=== PATIENT | male | born 1975 | race Caucasian/White ===

== ENCOUNTER 2017-09-03 11:39 | Emergency (ER) | payer BC, OTHER ==
--- OUTSIDE RECORDS SUMMARY | 2017-09-03 11:47 | XMS REPORT ---
:1975 External Reference #:[id number] Author Organization [employer] Address [address] [place] [address] [place] [address] Phone [phone] Care Team Providers Name Role Phone Shemar Lackey MD Primary Care Physician Unavailable Payers Type Date Identification Numbers Payment Provider Subscriber Commercial Expires: Policy Number: [id number] [facility] Phil Carrasco 2017 PayID: [id number] [address] [place] [address] Medigap Part B Effective: Policy Number: [employer] Phil Carrasco 2017 [id number] PayID: [id number] [address] [place] [address] Problems Date Description Provider Status Onset: 06/17/2017 Altered mental status Bernard Pedroza M.D. Active Onset: 06/17/2017 Obstructive sleep apnea syndrome Bernard Pedroza M.D. Active Onset: 05/02/2017 Hypersomnia Bernard Pedroza M.D. Active Onset: 05/02/2017 Seizure Bernard Pedroza M.D. Active Onset: 05/02/2017 Chronic fatigue syndrome Bernard Pedroza M.D. 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 ETOH Use Rarely consumes alcohol Smoking Patient has never smoked Exercise Type/Frequency Exercises regularly Allergies, Adverse Reactions, Alerts Date Description Reaction Status Severity Comments 05/02/2017 Codeine GI reaction active 06/09/2013 NKDA inactive Medications Medication Date Status Form Strength Qnty SIG Indications Ordering Provider Topamax 08/15 Active Tablets 25mg 60tab 1 pill by R41.82 angelia s mouth Josee Pedroza twice a day Lexapro 08/15 Active Tablets 10mg 30tab Take one Ez angelia s once a Josee Pedroza day Cpap 06/18 Active Device 1unit for use G47.33 angelia s while Josee Pedroza sleeping Cpap Mask And 06/18 Active Device cpap G47.33 angelia supplies Josee Pedroza - headgear, cushion, tubing, filters, for sleep apnea Fluticasone Active Suspension 50mcg/Act 2 sprays Unknown Propionate /0000 each nostril as needed Ativan 00 Active Tablets 1mg 2 x daily Unknown /0000 as needed for panic attacks.. No Active 12/17 Hx Unknown Medications /2013 - 04/30 Hydrocodone/Acet 07/03 Hx Tablets 5-325mg 40tab 1-2 po malachi Hunt /2012 s qid gato Tripp - 12/12 Pseudoephedrine Hx Tablets 15mg mg 1 tabs by Unknown HCL /0000 mouth - every 12 / hours needed for sinus congestio n Vital Signs Date Vital Result Comment 08/15/2017 Height 75 inches 6'3" Weight 244.00 lb Heart Rate 88 /min BP Systolic Sitting 112 mmHg BP Diastolic Sitting 84 mmHg Respiratory Rate 16 /min BMI (Body Mass Index) 30.5 kg/m2 06/17/2017 Height 75 inches 6'3" Weight 240.00 lb Heart Rate 78 /min BP Systolic Sitting 128 mmHg BP Diastolic Sitting 78 mmHg Respiratory Rate 16 /min BMI (Body Mass Index) 30.0 kg/m2 05/02/2017 Height 75 inches 6'3" Weight 240.00 lb Heart Rate 76 /min BP Systolic 120 mmHg BP Diastolic 76 mmHg Respiratory Rate 16 /min BMI (Body Mass Index) 30.0 kg/m2 04/09/2017 Height 75 inches 6'3" Weight 240.00 lb Heart Rate 67 /min BP Systolic 122 mmHg BP Diastolic 84 mmHg Body Temperature 97.0 F BMI (Body Mass Index) 30.0 kg/m2 02/23/2014 Height 75 inches 6'3" Weight 225.00 lb Pain Level 0 BMI (Body Mass Index) 28.1 kg/m2 01/19/2014 Height 75 inches 6'3" Weight 225.00 lb Heart Rate 66 /min BP Systolic 132 mmHg BP Diastolic 86 mmHg Pain Level 0 BMI (Body Mass Index) 28.1 kg/m2 12/17/2013 Height 74 inches 6'2" Weight 220.00 lb Heart Rate 65 /min BP Systolic 128 mmHg BP Diastolic 80 mmHg BMI (Body Mass Index) 28.2 kg/m2 Results Description No Information Procedures Date CPT Code Description Status 05/24/2017 70080 Sleep Study Unattended,HRT Rate,Oxygen Sat,Resp Completed Effort/Airflow 05/03/2017 75344 EEG Recording Awake & Drowsy Completed 07/04/2012 73281 Arthroscopy,Knee,Meniscus Repair Medial Or Lateral Completed 07/04/2012 68216 Arthroscopy,Knee,Meniscus Repair Medial Or Lateral Completed Encounters Type Date Location Provider CPT E/M Dx Office Visit 08/15/2017 [facility] Pedroza [id number] G47.33 10:00a [facility] R41.82 R53.82 Office Visit 06/17/2017 2:15p [facility]za 27814 G47.33 [facility] R41.82 R53.82 Office Visit 05/02/2017 10:30a Juanpablo Pedroza, 28382 R53.82 [facility] R56.9 G47.10 Office Visit 04/09/2017 1:00p [facility] Harvinder Mooney, 89855 M25.561 [facility] Office Visit 02/23/2014 10:15a [facility] Rodrigo Brantley M.D. 69269 844.8 [facility] Office Visit 01/19/2014 11:45a [facility] Rodrigo Brantley M.D. 01595 844.8 [facility] Office Visit 12/17/2013 2:00p [facility] Niurka Lobo 33969 719.06 [facility] Office Visit 01/13/2013 10:30a [facility] Rodrigo Brantley M.D. 72104 844.8 [facility] Office Visit 12/26/2012 10:00a [facility] Rodrigo Brantley M.D. 57172 844.8 [facility] Office Visit 10/21/2012 11:45a [facility] Rodrigo Brantley M.D. 90967 844.8 [facility] Office Visit 07/03/2012 2:00p [facility] Rodrigo Brantley M.D. 17558 844.8 [facility] Plan of Care Future Appointment(s):09/12/2017 4:00 pm - Bernard Pedroza M.D. at [facility]08/15/2017 - Bernard Pedroza M.D.G47.33 Obstructive sleep apnea (adult) (pediatric)Follow up:Follow up in 4 ikanjM03.82 Altered mental status, unspecifiedNew Medication:Topamax 25 mgLexapro 10 mgR53.82 Chronic fatigue, unspecified
[2017-09-03 12:05] VITALS: BP 139/90
--- NOTE | 2017-09-03 12:10 | UC ---
Back Pain HPI - HPI Summary HPI Summary: 42 yo male presents with lower back pain for the last 2 days. 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 Has been painful since. No hx of back problems. Has taken tylenol and ibuprofen for pain with mild relief. Denies abdominal pain, n/v/d/c, saddle anesthesia, no loss of bowel/bladder function, numbness, or tingling. - History of Current Complaint Chief Complaint: UCBackPain Stated Complaint: BACK INJURY Time Seen by Provider: 09/03/17 12:09 Hx Obtained From: Patient Onset/Duration: Sudden Onset Severity Initially: Severe Severity Currently: Severe Pain Intensity: 7 Pain Scale Used: 0-10 Numeric - Allergies/Home Medications Allergies/Adverse Reactions: Allergies Allergy/AdvReac Type Severity Reaction Status Date / Time codeine AdvReac Abdominal Verified 09/03/17 11:58 Pain Home Medications: Home Medications Escitalopram Oxalate [Lexapro 10 mg] 10 mg PO DAILY 09/03/17 [History Confirmed 09/03/17] PMH/Surg Hx/FS Hx/Imm Hx Psychological History: Anxiety - Surgical History Surgical History: Yes Surgery Procedure, Year, and Place: umbilical HERNIA repair; meniscus right knee , wisdom teeth - Family History Known Family History: Positive: None - Social History Occupation: Employed Full-time Lives: With Family Alcohol Use: Occasionally Alcohol Amount: none for 2 mos after feeling he was drinking too much Substance Use Type: None Smoking Status (MU): Former Smoker Have You Smoked in the Last Year: No When Did the Patient Quit Smoking/Using Tobacco: 2011 Review of Systems Constitutional: Negative Skin: Negative Respiratory: Negative Cardiovascular: Negative Gastrointestinal: Negative Genitourinary: Negative Motor: Negative Neurovascular: Negative Musculoskeletal: Other: - LBP Neurological: Negative Psychological: Negative All Other Systems Reviewed And Are Negative: Yes Physical Exam - Summary Physical Exam Summary: GENERAL: NAD. WDWN. No pain distress. SKIN: No rashes, sores, lesions, or open wounds. NECK: Supple. FROM. Nontender. No lymphadenopathy. CHEST: CTAB. No r/r/w. No accessory muscle use. Breathing comfortably and in no distress. CV: RRR. Without m/r/g. Pulses intact. Brisk cap refill. MSK: TTP over lumbar paraspinal muscles. Pain with flexion and extension of spine. Positive SLR on RIGHT. Strength 5/5 B/L LEs including dorsiflexion and plantar flexion. FROM B/L LEs. No edema. NEURO: Alert. CN II-XII grossly intact. Sensations intact B/L LEs L3-S1. PSYCH: Age appropriate behavior. Triage Information Reviewed: Yes Vital Signs: Initial Vital Signs Temp 98.3 F 09/03/17 11:59 Pulse 64 09/03/17 11:59 Resp 16 09/03/17 11:59 BP 139/90 09/03/17 11:59 Pulse Ox 99 09/03/17 11:59 Vital Signs Reviewed: Yes Back Pain Course/Dx - Course Course Of Treatment: Lumbar XR: FINDINGS: The vertebra are in normal alignment. No fracture is seen. There is moderate to severe degenerative disc disease at the T12-L1 level and mild degenerative disc disease at the L1-L2 level. Suspect muscle strain/spasm. Toradol 30mg IM given in clinic. Rx for flexeril. F /u prn - Differential Dx/Diagnosis Provider Diagnoses: Low back spasm Discharge - Sign-Out/Discharge Documenting (check all that apply): Patient Departure - Discharge Plan Condition: Stable Disposition: HOME Prescriptions: Cyclobenzaprine TAB* [Flexeril 10 MG TAB*] 10 mg PO BID PRN #20 tab PRN Reason: Pain Patient Education Materials: Low Back Strain (ED), Lower Back Exercises (ED) Referrals: Shemar Lackey MD [Primary Care Provider] - Additional Instructions: If you develop a fever, shortness of breath, chest pain, new or worsening symptoms - please call your PCP or go to the ED. Your blood pressure was high at todays visit. Please see your primary provider within 4 weeks for recheck and re-evaluation. - Billing Disposition and Condition Condition: STABLE Disposition: Home
[2017-09-03] MEDS ORDERED: Ketorolac INJ* 30 MG/ML 1 ML VIAL IM ONE (12:15)
--- NOTE | 2017-09-03 12:41 | RAD ---
INDICATION: Low back pain. COMPARISON: There are no prior studies available for comparison. TECHNIQUE: 5 views of the lumbar spine were obtained including lateral, oblique, AP and a coned-down lateral view of the lumbar sacral junction. FINDINGS: The vertebra are in normal alignment. No fracture is seen. There is moderate to severe degenerative disc disease at the T12-L1 level and mild degenerative disc disease at the L1-L2 level. IMPRESSION: DEGENERATIVE DISC DISEASE AT THE DORSAL LUMBAR JUNCTION DESCRIBED.
== END 2017-09-03 13:03 | disposition home or self-care (01) ==
LOC: UCEAST 11:39
DX: M62.830 Muscle spasm of back (principal); F41.9 Anxiety disorder, unspecified; Z79.899 Other long term (current) drug therapy; Z87.891 Personal history of nicotine dependence; Z88.5 Allergy status to narcotic agent
CPT/HCPCS: 72110; 96372; 99212; G0463; J1885

== ENCOUNTER 2017-12-11 09:50 | Emergency (ER) | payer OTHER ==
[2017-12-11 10:02] VITALS: BP 127/81
--- NOTE | 2017-12-11 10:08 | UC ---
Respiratory Complaint HPI - HPI Summary HPI Summary: 42 y/o male presents to the urgent care c/o productive cough w/ chest congestion , chills that has worsen for the past 5 days. Pt reports symptoms started about 2 weeks ago w/ the common cold. He though it was resolving, but over the weekend chest became very congested w/ a lot +PND. Now producing a yellowish phlegm. He has felt SOB. Pt has been taking Claritin, Dayquill PO to alleviate symptoms. Pt deneis fever, chest pain, abdominal pain, N/V/D. - History of Current Complaint Chief Complaint: UCRespiratory Stated Complaint: COUGH CHEST CONGESTION Time Seen by Provider: 12/11/17 10:07 Hx Obtained From: Patient Onset/Duration: Gradual Onset, Lasting Weeks - 2 weeks, Still Present, Worse Since - 5 days Timing: Intermittent Episodes Severity Initially: Mild Severity Currently: Moderate Pain Intensity: 4 Pain Scale Used: 0-10 Numeric Character: Cough: Productive, Sputum Description: - yellowish Aggravating Factors: Recumbent Position Alleviating Factors: OTC Meds Associated Signs And Symptoms: Positive: URI, Nasal Congestion, Sinus Discomfort Related History: Seasonal Allergies - Risk Factors Pulmonary Embolism Risk Factors: Negative Cardiac Risk Factors: Negative Pseudomonas Risk Factors: Negative Tuberculosis Risk Factors: Negative - Allergies/Home Medications Allergies/Adverse Reactions: Allergies Allergy/AdvReac Type Severity Reaction Status Date / Time codeine AdvReac Abdominal Verified 12/11/17 10:02 Pain Home Medications: Home Medications Dm/Pseudoephed/Acetaminophen [Day-Time Cold-Flu Softgel] 1 tab PO ONCE PRN 12/11 [History Confirmed 12/11/17] PMH/Surg Hx/FS Hx/Imm Hx Previously Healthy: Yes - Pt denies PMHX - Surgical History Surgical History: Yes Surgery Procedure, Year, and Place: umbilical HERNIA repair; meniscus right knee , wisdom teeth - Family History Known Family History: Positive: None - Pt denies FMHX - Social History Occupation: Employed Full-time Lives: With Family Alcohol Use: None Alcohol Amount: none for 2 mos after feeling he was drinking too much Substance Use Type: None Substance Use Comment - Amount & Last Used: sometimes, had in some tea Smoking Status (MU): Former Smoker Have You Smoked in the Last Year: No When Did the Patient Quit Smoking/Using Tobacco: 2012 Review of Systems Constitutional: Chills, Fatigue Skin: Negative Eyes: Negative ENT: Nasal Discharge - yellowish, Sinus Congestion Respiratory: Shortness Of Breath - at times, Cough - productive w/ yellowihs phelgm Cardiovascular: Negative Gastrointestinal: Negative Genitourinary: Negative Motor: Negative Neurovascular: Negative Musculoskeletal: Negative, Calf Tenderness Neurological: Negative Psychological: Negative Is Patient Immunocompromised?: No All Other Systems Reviewed And Are Negative: Yes Physical Exam - Summary Physical Exam Summary: Vital Signs Reviewed: Yes General: well developed, well nourished male sitting in the examining table w/o any apparent distress Eyes: Positive: Conjunctiva Clear - PERRLA, EOMI, fundi grossly normal ENT: Positive: Normal ENT inspection, Hearing grossly normal, Pharynx normal, Nasal congestion - edematous and erythematous nasal mucosa, Nasal drainage - yellowish drainage, TMs normal. Negative: Tonsillar swelling, Tonsillar exudate Neck: Positive: Supple, Nontender, No Lymphadenopathy Respiratory: no orthopnea or dyspnea. Able to speak in full sentences, no retractions or accessory muscle use, no tripod position, stridor, or head bobbing. Positive breath sounds bilaterally. diffuse scattered wheezing and rhonchi on b/L lungs, no crackles or rales. Cardiovascular: Positive: RRR, No Murmur, Pulses Normal, Brisk Capillary Refill Abdomen Description: Positive: Nontender, No Organomegaly, Soft. Negative: CVA Tenderness (R), CVA Tenderness (L) Bowel Sounds: Positive: Present Musculoskeletal Exam: Normal Musculoskeletal: Positive: Strength Intact, ROM Intact, No Edema Neurological Exam: Normal Psychological Exam: Normal Skin Exam: Normal Triage Information Reviewed: Yes Vital Signs: Initial Vital Signs Temp 98.3 F 12/11/17 09:57 Pulse 72 12/11/17 09:57 Resp 18 12/11/17 09:57 BP 127/81 12/11/17 09:57 Pulse Ox 97 12/11/17 09:57 UC Diagnostic Evaluation - Laboratory O2 Sat by Pulse Oximetry: 97 Respiratory Course/Dx - Course Course Of Treatment: 42 y/o male presents to the urgent care c/o productive cough w/ chest congestion, chills that has worsen for the past 5 days. Pt reports symptoms started about 2 weeks ago w/ the common cold. He though it was resolving, but over the weekend chest became very congested w/ a lot +PND. Now producing a yellowish phlegm. He has felt SOB. Pt has been taking Claritin, Dayquill PO to alleviate symptoms. Pt deneis fever, chest pain, abdominal pain, N/V/D.Hx obtained. Pt w/ B/L lungs w/ scattered rhonchi on examiantion. O2Sat:97 %. Chest X-ray ordered: no acitve cardiolopulmonary disease observed as per radiologist. Pt with Acute bronchitis on examination. Pt Rx Doxyxycline PO and Albuterol inhaler to alleviate bronchospasm and Tessalon tabs PO as directed below. Pt advised to increase fluid intake and eat well. if not improvement or worsening of symptoms to return to the urgent care or f/u with PCP for further management. pt understood and agreed with plan of care. - Differential Dx/Diagnosis Differential Diagnosis/HQI/PQRI: Asthma, Bronchitis, Laryngitis, Lower Resp Infection, Sinusitis, Other - URI, pneumonia Provider Diagnoses: 1- Acute Bronchitis. 2-Cough Discharge - Sign-Out/Discharge Documenting (check all that apply): Patient Departure All imaging exams completed and their final reports reviewed: Yes - Discharge Plan Condition: Stable Disposition: HOME Prescriptions: Albuterol HFA INHALER* [Ventolin HFA Inhaler*] 1 - 2 puff INH Q6H PRN #1 mdi PRN Reason: Cough Benzonatate CAP* [Tessalon 100 MG CAP*] 100 mg PO TID PRN #21 cap PRN Reason: Cough DOXYcycline CAP(*) [DOXYcycline 100MG CAP(*)] 100 mg PO BID #20 cap Patient Education Materials: Acute Bronchitis (ED) Forms: *Work Release Referrals: Shemar Lackey MD [Primary Care Provider] - 3 Days - Billing Disposition and Condition Condition: STABLE Disposition: Home
--- NOTE | 2017-12-11 10:34 | RAD ---
Indication: Cough. 2 views of the chest including dual energy PA views demonstrate no mediastinal shift. Heart is of normal size and configuration. Lung tan are clear. No pleural fluid, pneumonia or pneumothorax is noted. IMPRESSION: No active cardiopulmonary disease is noted.
== END 2017-12-11 10:44 | disposition home or self-care (01) ==
LOC: UCEAST 09:50
DX: J20.9 Acute bronchitis, unspecified (principal); Z88.5 Allergy status to narcotic agent; Z87.891 Personal history of nicotine dependence
CPT/HCPCS: 71046; 99212; G0463

== ENCOUNTER 2018-06-09 12:19 | Emergency (ER) | payer OTHER ==
--- OUTSIDE RECORDS SUMMARY | 2018-06-09 12:28 | XMS REPORT | Continuity of Care Document ---
:1975 External Reference #:[id number] Author Name Katharine Duncan Care Team Providers Name Role Phone Shemar Lackey MD Primary Care Physician Unavailable Payers Date Identification Numbers Payment Provider Subscriber Expires: 2017 Policy Number: [id number] [facility] Phil J Danilo PayID: [id number] [address] [place] [address] Effective: 2017 Policy Number: [id number] [employer] Phil Lg Danilo PayID: [id number] [address] [place] [address] Advance Directives Description No Information Available Problems Date Description Provider Status Onset: 05/02/2017 Chronic fatigue syndrome Bernard Pedroza M.D. Active Onset: 05/02/2017 Seizure Bernard Pedroza M.D. Active Onset: 05/02/2017 Hypersomnia Bernard Pedroza M.D. Active Onset: 06/17/2017 Obstructive sleep apnea syndrome Bernard Pedroza M.D. Active Onset: 06/17/2017 Altered mental status Bernrad Pedroza M.D. Active Onset: 09/12/2017 Alcohol dependence Bernard Pedroza M.D. Active Onset: 09/12/2017 Anxiety state Bernard Pedroza M.D. 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 Hand Dominance Right-handed ETOH Use Rarely consumes alcohol Tobacco Use Start: Unknown Patient has never smoked Recreational Drug Use Denies Drug Use Smoking Status Reviewed: 05/26/18 Patient has never smoked Exercise Type/Frequency Exercises regularly Allergies, Adverse Reactions, Alerts Date Description Reaction Status Severity Comments 05/02/2017 Codeine GI reaction Active 06/09/2013 NKDA Inactive Medications Medication Date Status Form Strength Qnty SIG Indications Ordering Provider Cpap Mask And 05/26 Active Device 12uni cpap R41.82 ophvinita ts supplies Josee Pedroza - headgear, cushion, tubing, filters, for sleep apnea dx code g47.33 Citalopram 05/19 Active Tablets 10mg 30tab 1 by Bernard Wade s mouth Josee Pedroza every day No Active 04/15 Hx Unknown Medications - 05/19 Citalopram 02/06 Hx Tablets 10mg 30tab take 1 F41.9 Bernard Hydrobromide s pill in Josee Pedroza - in the 04/14 Chlordiazepoxide 09/12 Hx Capsules 25mg 20cap Take 1 F10.20 Bernard HCL s pill four Josee Pedroza - times a 02/05 day for days then three times a day for 2 days then once a day for 3 days. Topamax 08/15 Hx Tablets 25mg 60tab 1 pill by [id number] angelia s mouth Josee Pedroza - twice a Lexapro 08/15 Hx Tablets 10mg 30tab Take one R41.82 Bernard s once a Josee Pedroza - day 02/05 Cpap 06/18 Hx Device 1unit for use G47.33 Bernard s while Josee Pedroza - sleeping 04/14 Cpap Mask And 06/18 Hx Device cpap G47.33 Bernard supplies Josee Pedroza - - 04/14 headgear, cushion, tubing, filters, for sleep apnea No Active 12/17 Hx Unknown Medications /2013 - 04/30 Hydrocodone/Acet 07/03 Hx Tablets 5-325mg 40tab 1-2 po malachi Hunt /2012 s qid prn Christopher.Felipe - 12/12 Fluticasone Hx Suspension 50mcg/Act 2 sprays Unknown Propionate /0000 each - nostril 09/11 as needed Ativan Hx Tablets 1mg 2 x daily Unknown /0000 as needed - for panic 04/14 attacks. Pseudoephedrine Hx Tablets 15mg mg 1 tabs by Unknown HCL /0000 mouth - every 12 21 hours needed for sinus congestio n Immunizations Description No Information Available Vital Signs Date Vital Result Comment 05/26/2018 3:51pm Height 75 inches 6'3" Weight 251.00 lb Heart Rate 66 /min BP Systolic 120 mmHg BP Diastolic 94 mmHg BMI (Body Mass Index) 31.4 kg/m2 04/15/2018 3:28pm Height 75 inches 6'3" Weight 240.00 lb Heart Rate 70 /min BP Systolic 132 mmHg BP Diastolic 78 mmHg Respiratory Rate 12 /min Pain Level 3 BMI (Body Mass Index) 30.0 kg/m2 02/06/2018 10:02am Height 75 inches 6'3" Weight 252.50 lb Heart Rate 70 /min BP Systolic 124 mmHg BP Diastolic 88 mmHg BMI (Body Mass Index) 31.6 kg/m2 11/07/2017 3:51pm Height 75 inches 6'3" Weight 248.12 lb Heart Rate 72 /min BP Systolic Sitting 122 mmHg BP Diastolic Sitting 78 mmHg Respiratory Rate 16 /min BMI (Body Mass Index) 31.0 kg/m2 09/12/2017 2:13pm Height 75 inches 6'3" Weight 235.00 lb Heart Rate 74 /min BP Systolic 134 mmHg BP Diastolic 90 mmHg Respiratory Rate 16 /min BMI (Body Mass Index) 29.4 kg/m2 08/15/2017 9:57am Height 75 inches 6'3" Weight 244.00 lb Heart Rate 88 /min BP Systolic Sitting 112 mmHg BP Diastolic Sitting 84 mmHg Respiratory Rate 16 /min BMI (Body Mass Index) 30.5 kg/m2 06/17/2017 2:15pm Height 75 inches 6'3" Weight 240.00 lb Heart Rate 78 /min BP Systolic Sitting 128 mmHg BP Diastolic Sitting 78 mmHg Respiratory Rate 16 /min BMI (Body Mass Index) 30.0 kg/m2 05/02/2017 10:12am Height 75 inches 6'3" Weight 240.00 lb Heart Rate 76 /min BP Systolic 120 mmHg BP Diastolic 76 mmHg Respiratory Rate 16 /min BMI (Body Mass Index) 30.0 kg/m2 04/09/2017 12:54pm Height 75 inches 6'3" Weight 240.00 lb Heart Rate 67 /min BP Systolic 122 mmHg BP Diastolic 84 mmHg Body Temperature 97.0 F BMI (Body Mass Index) 30.0 kg/m2 02/23/2014 9:58am Height 75 inches 6'3" Weight 225.00 lb Pain Level 0 BMI (Body Mass Index) 28.1 kg/m2 01/19/2014 11:45am Height 75 inches 6'3" Weight 225.00 lb Heart Rate 66 /min BP Systolic 132 mmHg BP Diastolic 86 mmHg Pain Level 0 BMI (Body Mass Index) 28.1 kg/m2 12/17/2013 2:24pm Height 74 inches 6'2" Weight 220.00 lb Heart Rate 65 /min BP Systolic 128 mmHg BP Diastolic 80 mmHg BMI (Body Mass Index) 28.2 kg/m2 Results Description No Information Available Procedures Date Code Description Status 05/24/2017 70050 Sleep Study Unattended,HRT Rate,Oxygen Sat,Resp Completed Effort/Airflow 05/03/2017 07801 EEG Recording Awake & Drowsy Completed 07/04/2012 61196 Arthroscopy,Knee,Meniscus Repair Medial Or Lateral Completed 07/04/2012 82604 Arthroscopy,Knee,Meniscus Repair Medial Or Lateral Completed Encounters Type Date Location Provider Dx Diagnosis Office Visit 05/26/2018 Juanpablo Pedroza R41.82 Altered mental 4:00p Services Of Demetris Tripp status, unspecified F41.9 Anxiety disorder, unspecified R53.82 Chronic fatigue, unspecified Office Visit 04/15/2018 Orthopedic Harvinder F M25.561 Pain in right 3:00p Services Of MD Vinicio knee C.M.A. 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 status, Services Of [facility] unspecified F41.8 Other specified anxiety disorders G47.33 Obstructive sleep apnea (adult) (pediatric) F10.20 Alcohol dependence, uncomplicated Office Visit 08/15/2017 Juanpablo Bernard Pedroza G47.33 Obstructive sleep 10:00a Neurologic M.D. apnea (adult) Services Of [facility] (pediatric) F41.8 Other specified anxiety disorders Z72.89 Other problems related to lifestyle Office Visit 06/17/2017 Juanpablo Pedroza G47.33 Obstructive sleep 2:15p Neurologic M.D. apnea (adult) Services Of [facility] (pediatric) R41.82 Altered mental status, unspecified R53.82 Chronic fatigue, unspecified Office Visit 05/02/2017 [place] Pedroza, R53.82 Chronic fatigue, 10:30a Neurologic M.D. unspecified [facility] Of [facility] R56.9 Unspecified convulsions G47.10 Hypersomnia, unspecified Office Visit 04/09/2017 1:00p Orthopedic Harvinder Carrasco M25.561 Pain in right Services Of MD Vinicio knee C.M.A. Office Visit 02/23/2014 10:15a Shona Brantley 844.8 Sprains & Services Of M.D. Strains Knee & C.M.A. Leg Other Spec Sites Office Visit 01/19/2014 11:45a Christian Villalobos.8 Sprains & Services Of M.D. Strains Knee & C.M.A. Leg Other Spec Sites Office Visit 12/17/2013 2:00p Orthopedic Niurka 719.06 Effusion Joint Services Of JANEL Lobo Lower Leg C.M.A. Office Visit 01/13/2013 10:30a Deysi Villalobos4.8 Sprains & Services Of M.D. Strains Knee & C.M.A. Leg Other Spec Sites Office Visit 12/26/2012 10:00a Christian Villalobos.8 Sprains & Services Of M.D. Strains Knee & C.M.A. Leg Other Spec Sites Office Visit 10/21/2012 11:45a Deysi Villalobos4.8 Sprains & Services Of M.D. Strains Knee & C.M.A. Leg Other Spec Sites Office Visit 07/03/2012 2:00p Christian Villalobos.8 Sprains & Services Of Josee Strains Knee & C.M.A. Leg Other Spec Sites Plan of Treatment Future Appointment(s):11/28/2018 4:00 pm - Bernard Pedroza M.D. at [facility]05/26/2018 - Bernard Pedroza M.D.R41.82 Altered mental status, unspecifiedNew Medication:Cpap Mask And Supplies - cpap supplies - headgear, cushion, tubing, filters, for sleep apnea dx code g47.33Follow up:Follow up in 6 wtwglfC21.9 Anxiety disorder, zpyjwfkfvygU70.82 Chronic fatigue, unspecified
[2018-06-09 13:17] VITALS: BP 116/80
--- NOTE | 2018-06-09 13:27 | UC ---
Lower Extremity/Ankle HPI - HPI Summary HPI Summary: 42-year-old otherwise healthy male presents with discomfort in the first MTP joint for approximately 3 weeks. He states the pain is mild and that 8 occasionally affects his gait. He states that sometimes he walks on the side of his foot. 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 It has never been reddened and has been mildly swollen. He last did kick boxing on Saturday without much discomfort. He has no fever, no numbness or weakness. - History of Current Complaint Chief Complaint: UCLowerExtremity Stated Complaint: RT TOE INJURY Time Seen by Provider: 06/09/18 13:21 Hx Obtained From: Patient Pain Intensity: 7 - Allergies/Home Medications Allergies/Adverse Reactions: Allergies Allergy/AdvReac Type Severity Reaction Status Date / Time codeine AdvReac Abdominal Verified 06/09/18 13:17 Pain Home Medications: Home Medications Anxety Med 10 mg PO DAILY WITH MEAL 06/09/18 [History Confirmed 06/09/18] PMH/Surg Hx/FS Hx/Imm Hx Previously Healthy: Yes Endocrine History: Dyslipidemia - Borderline - Surgical History Surgical History: Yes Surgery Procedure, Year, and Place: umbilical HERNIA repair; meniscus right knee , wisdom teeth - Family History Known Family History: Positive: None - Pt denies FMHX - Social History Alcohol Use: Occasionally Alcohol Amount: none for 2 mos after feeling he was drinking too much Substance Use Type: None Substance Use Comment - Amount & Last Used: sometimes, had in some tea Smoking Status (MU): Former Smoker Have You Smoked in the Last Year: No When Did the Patient Quit Smoking/Using Tobacco: 2011 Review of Systems All Other Systems Reviewed And Are Negative: Yes Constitutional: Negative: Fever Skin: Negative: Rash, Bruising Motor: Negative: Decreased ROM Musculoskeletal: Positive: Arthralgia, Edema Neurological: Negative: Weakness, Paresthesia Physical Exam Triage Information Reviewed: Yes Appearance: Well-Appearing, No Pain Distress, Well-Nourished Vital Signs: Initial Vital Signs Temp 98.2 F 06/09/18 13:14 Pulse 73 06/09/18 13:14 Resp 18 06/09/18 13:14 BP 116/80 06/09/18 13:14 Pulse Ox 98 06/09/18 13:14 Vital Signs Reviewed: Yes ENT: Positive: Hearing grossly normal Neck: Positive: Supple Respiratory: Positive: Lungs clear Cardiovascular: Positive: RRR Musculoskeletal: Positive: Other: - No significant tenderness, redness or edema noted in the right great toe. Normal gait. Range of motion appears intact. Neurological: Positive: Alert, Other: - Normal light touch sensation to affected digit Skin Exam: Normal Diagnostics - Radiology R great toe Radiology Interpretation Completed By: Radiologist - No acute osseous injury Lower Extremity Course/Dx - Course Course Of Treatment: Patient with no discernible findings on exam. X-rays negative. Possible fusiform injury from kickboxing. Start NSAID, RICE. 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 Follow-up with her family doctor in one week's time. You may want to discontinue kickboxing for approximately 1-2 weeks. Return if worse, new symptoms or other concerns. - Billing Disposition and Condition Condition: IMPROVED Disposition: Home - Attestation Statements Document Initiated by Scribe: No
== END 2018-06-09 13:52 | disposition home or self-care (01) ==
LOC: UCEAST 12:19
DX: M19.071 Primary osteoarthritis, right ankle and foot (principal); E78.5 Hyperlipidemia, unspecified; Z88.5 Allergy status to narcotic agent; Z87.891 Personal history of nicotine dependence
CPT/HCPCS: 99212; G0463

== ENCOUNTER 2019-04-10 12:23 | Emergency (ER) | payer OTHER ==
--- OUTSIDE RECORDS SUMMARY | 2019-04-10 12:29 | XMS REPORT | Summary of Care ---
:1975 Author Organization [facility] Address [address] [address] Care Team Providers Name Role Phone Shemar Lackey Primary Care Provider Reason for Visit Reason Comments Physical Patient here for annual physical. Encounter Details Date Type Department Care Team Description 02/24/2019 Office Visit [place] Shemar Lackey, Routine general Medicine MD medical examination at [address] [facility] health care facility [place], [place] [id number] [place] [id number] (Primary Dx) [phone] Allergies Active Allergy Reactions Severity Noted Date Comments Codeine GI Reaction 04/23/2014 documented as of this encounter (statuses as of 02/24/2019) Medications Medication Sig Dispensed Refills Start Date End Date Status LORazepam (ATIVAN) 1 Take 0.5 Tabs by 30 Tab 0 01/18/2017 Active MG Oral Tab mouth TWO TIMES DAILY NEEDED (panic). Max Daily Amount: 1 mg. clindamycin (CLEOCIN) 1 Appl by Topical 60 mL 3 01/13/2019 Active 1 % Apply externally route TWICE DAILY. Solution Apply twice daily to affected areas buttocks thighs documented as of this encounter (statuses as of 02/24/2019) Active Problems Problem Noted Date Mixed hyperlipidemia 02/24/2019 Post concussion syndrome 03/21/2018 Overview: Mild anxiety and depression sees neurology Dr King Ame ALCAZAR Alcoholism in remission 07/26/2015 Overview: Quit drinking July 2015 History of tobacco use 03/07/2010 Overview: Quit Dec 2009 Major depression in complete remission 04/04/2009 documented as of this encounter (statuses as of 02/24/2019) Resolved Problems Problem Noted Date Resolved Date Alcohol withdrawal, uncomplicated 12/02/2018 12/02/2018 Alcohol withdrawal, uncomplicated 06/16/2018 12/02/2018 Obesity, unspecified 12/28/2011 02/18/2015 Overview: bmi 31 12/23 This patient's BMI has been calculated and is above average, and BMI management plan is completed. General patient education discussion including: obesity-related excess mortality, weight loss link to reduction of risk factors for cardiac and other diseases, importance of long- term maintenance treatment in weight loss Skin Moles 04/25/2007 12/02/2018 Overview: Removals: 06/05/2006, Dr. Xiao, compound nevus left side neck ; 12/17/2006 , Dr. Azul, intradermal nevus right upper back. Mild intermittent asthma 12/10/2003 03/21/2018 documented as of this encounter (statuses as of 02/24/2019) Immunizations Name Administration Dates Next Due Influenza (IM) Preservative Free 12/02/2018, 01/18/2017, 11/27/2011 Influenza Vaccine Whole 11/20/2005 TDAP Vaccine 05/12/2004 documented as of this encounter Social History Tobacco Use Types Packs/Day Years Used Date Former Smoker Quit: 12/12/2009 Smokeless Tobacco: Former User Alcohol Use Drinks/Week oz/Week Comments Yes 2 Cans of beer 8.0 6 Shots of liquor Sex Assigned at Date Recorded Not on file Job Start Date Occupation Industry Not on file Not on file Not on file Travel History Travel Start Travel End No recent travel history available. documented as of this encounter Last Filed Vital Signs Vital Sign Reading Time Taken Comments Blood Pressure 104/70 02/24/2019 3:21 PM EST Pulse 72 02/24/2019 3:21 PM EST Temperature - - Respiratory Rate - - Oxygen Saturation - - Inhaled Oxygen Concentration - - Weight 114.3 kg (252 lb) 02/24/2019 3:21 PM EST Height 190.5 cm (6' 3") 02/24/2019 3:21 PM EST Body Mass Index 31.5 02/24/2019 3:21 PM EST documented in this encounter Patient Instructions Patient InstructionsEstShemar rios MD - 02/24/2019 3:20 PM ESTBlood work today Please reduce the fat and cholesterol in your diet. The three main sources of fat/cholesterol are: 1. Red meat 2. Dairy products 3. Eggs Overall you are healthy Goal weight loss 10-20 pounds One option for right knee is physical therapy to strengthen it you could call [phone] for this Another option is [facility] knee specialist Dr Rios [phone] documented in this encounter Progress Notes Shemar Lackey MD - 02/24/2019 3:20 PM EST SUBJECTIVE: Phil Carrasco is a 43-y.o. male for presenting for his annual checkup. Mild intermittent right kneepain No swelling click or lock or giving way Patient Active Problem List Diagnosis Major depression in complete remission (HCC) History of tobacco use Alcoholism in remission (HCC) Post concussion syndrome Current Outpatient Medications Medication Sig clindamycin (CLEOCIN) 1 % Apply externally Solution 1 Appl by Topical route TWICE DAILY. Apply twice daily to affected areas buttocks thighs LORazepam (ATIVAN) 1 MG Oral Tab Take 0.5 Tabs by mouth TWO TIMES DAILY NEEDED (panic). Max Daily Amount: 1 mg. No current facility-administered medications for this visit. Allergies: Codeine ROS: Feeling well. No dyspnea or chest pain on exertion. No abdominal pain, change in bowel habits,black or bloody stools. No urinary tract or prostatic symptoms. No neurological complaints. OBJECTIVE: The patient appears well, alert, oriented x 3, in no distress. BP 104/70 | Pulse 72 | Ht 6' 3" (1.905 m) | Wt 252 lb (114.3 kg) | BMI 31.50 kg/m ENT normal. Neck supple. No adenopathy or thyromegaly. TATIANNA. Lungs are clear, good air entry, no wheezes, rhonchi or rales. S1 and S2 normal, no murmurs, regular rate and rhythm. Abdomen is soft without tenderness, guarding, mass or organomegaly. exam: no penile lesions or discharge, no testicular masses or tenderness, no hernias. Rectal and prostate exam: deferred, not clinically indicated. Extremities show no edema, normal peripheral pulses. Neurological is normal without focal findings. I note only benign skin findings. No unusual rashes or suspicious skin lesions noted. Nails appear normal. ICD-9-CM ICD-10-CM 1. Routine general medical examination at a [facility] facility V70.0 Z00.00 LIPID PROFILE COMPREHENSIVE METABOLIC PANEL Patient Instructions Blood work today Please reduce the fat and cholesterol in your diet. The three main sources of fat/cholesterol are: 1. Red meat 2. Dairy products 3. Eggs Overall you are healthy Goal weight loss 10-20 pounds One option for right knee is physical therapy to strengthen it you could call [phone] for this Another option is jackie knee specialist Dr Rios [phone] documented in this encounter Plan of Treatment Name Type Priority Associated Diagnoses Date/Time LIPID PROFILE Lab Routine Routine general medical 02/24/2019 3:56 PM examination at a [facility] facility COMPREHENSIVE METABOLIC Lab Routine Routine general medical 02/24/2019 3: 56 PM PANEL examination at a [facility] Health Maintenance Due Date Last Done Comments DTaP/Tdap/Td Vaccines (2 - 05/12/2014 05/12/2004 Tdap) DEPRESSION SCREENING 03/21/2019 03/21/2018 DIABETES SCREENING 04/15/2019 04/14/2018, 01/18/2017, 09/07/2016, Additional history exists LIPID DISORDER SCREENING 04/15/2023 04/14/2018, 04/19/2016, 01/11/2016, Additional history exists HEPATITIS A IMMUNIZATION Aged Out No longer eligible SERIES based on patient's age to complete this topic HPV IMMUNIZATION SERIES Aged Out No longer eligible based on patient's age to complete this topic MENINGOCOCCAL VACCINE IMM Aged Out No longer eligible based on patient's age to complete this topic PNEUMOCOCCAL 0-64 YRS Aged Out No longer eligible based on patient's age to complete this topic documented as of this encounter Goals Goal Patient Goal Associated Recent Patient-Stated? Author Type Problems Progress Depression Depression No nahum Schmitt (PHQ-9) AVA Ludwig total score < 5 Note: This is an individualized treatment (depression) goal for Phil Carrasco: Displayed above is your goal for a depression screening (PHQ-9) score that would indicate good control of your depression. Keep a regular sleep schedule Lifestyle No Vani Schmitt FNP Note: This is an individualized lifestyle goal for Phil Lg Carrasco: Please maintain a regular sleep schedule. This may help with some symptoms of depression. Take all prescribed medications as Self-management No Vani Schmitt FNP directed Note: This is an individualized self-management goal for Phil Carrasco: Please take all prescribed medications as directed. 1. Do not skip doses. If you cannot afford your medications, talk with your doctor. 2. Use a pill reminder system such as a pill box if needed. Your pharmacist can help you with this. 3. Contact your Pharmacy 5 days before your medication runs out. If you cannot take your medications for any reasons, talk with your doctor. 4. Please bring all of your medication bottles and inhalers (or a list of all your medications/inhalers) with you to every visit. Potential barriers to meeting all of your care plan goals will continue to be addressed on an ongoing basis. documented as of this encounter Results Not on filedocumented in this encounter Visit Diagnoses Diagnosis Routine general medical examination at a health care facility documented in this encounter Insurance Payer Benefit Plan / Subscriber ID Effective Dates Phone Address Type Group [employer]CIAL AETNA xxxxxxxxxx Effective for all [employer] dates documented as of this encounter
[2019-04-10 12:45] VITALS: BP 127/82
--- NOTE | 2019-04-10 13:12 | UC ---
Respiratory Complaint HPI - HPI Summary HPI Summary: 43 yo male presents with cough. He tells me that for the last 5 days he has had an intermittently productive cough and feels that his chest is tight and difficult to take a deep breath. He states he has had issues with bronchitis in the past that required albuterol inhalers and nebulizer treatments, but denies hx of asthma. He does not smoke tobacco, but does smoke marijuana. He has not been taking anything OTC for his symptoms. He denies fever, chills, sinus symptoms, sore throat, SOB, chest pain, abdominal pain. - History of Current Complaint Chief Complaint: UCGeneralIllness Stated Complaint: RESP COMPLAINT Time Seen by Provider: 04/10/19 13:12 Hx Obtained From: Patient Onset/Duration: Gradual Onset Severity Initially: Mild Severity Currently: Mild Pain Intensity: 1 Pain Scale Used: 0-10 Numeric Character: Cough: Productive - Allergies/Home Medications Allergies/Adverse Reactions: Allergies Allergy/AdvReac Type Severity Reaction Status Date / Time codeine AdvReac Abdominal Verified 04/10/19 12:40 Pain Home Medications: Home Medications Albuterol HFA INHALER* [Ventolin HFA Inhaler*] 1 puff INH Q6H PRN #1 mdi [Rx] Azithromycin TAB* [Zithromax TAB (Z-NAHOMI) 250 mg #6 tabs] 2 tab PO .TODAY, THEN 1 DAILY #1 nahomi 04/10/19 [Rx] LORazepam [Ativan 0.5 MG TAB] 0.5 mg PO BEDTIME PRN 04/10/19 [History Confirmed 04/10/19] PMH/Surg Hx/FS Hx/Imm Hx GI/ History: Gastroesophageal Reflux Psychological History: Anxiety - Surgical History Surgical History: Yes Surgery Procedure, Year, and Place: umbilical HERNIA repair; meniscus right knee , wisdom teeth - Family History Known Family History: Positive: None - Social History Lives: With Family Alcohol Use: None Alcohol Amount: none for 2 mos after feeling he was drinking too much Substance Use Type: Marijuana Substance Use Comment - Amount & Last Used: occasional Smoking Status (MU): Former Smoker Length of Time of Smoking/Using Tobacco: 3 years Have You Smoked in the Last Year: No When Did the Patient Quit Smoking/Using Tobacco: 2011 Review of Systems All Other Systems Reviewed And Are Negative: No Constitutional: Positive: Negative Skin: Positive: Negative Eyes: Positive: Negative ENT: Positive: Negative Respiratory: Positive: Cough Cardiovascular: Positive: Negative Gastrointestinal: Positive: Negative Neurological/Mental Status: Positive: Negative Psychological: Positive: Negative Physical Exam - Summary Physical Exam Summary: GENERAL: NAD. WDWN. No pain distress. SKIN: No rashes, sores, lesions, or open wounds. HEENT: Head: AT/NC Eyes: Conjunctiva clear without inflammation or discharge. Ears: Hearing grossly normal. TMs intact, no bulging, erythema, or edema. Nose: Nasal mucosa pink and moist. NTTP maxillary and frontal sinus. Throat: Posterior oropharynx without exudates, erythema, or tonsillar enlargement. Uvula midline. NECK: Supple. Nontender. No lymphadenopathy. CHEST: Mild wheezing throughout. No r/r. No accessory muscle use. Breathing comfortably and in no distress. CV: RRR. Pulses intact. Cap refill <2seconds NEURO: Alert. PSYCH: Age appropriate behavior. Triage Information Reviewed: Yes Vital Signs: Initial Vital Signs Temp 98.5 F 04/10/19 12:41 Pulse 81 04/10/19 12:41 Resp 16 04/10/19 12:41 BP 127/82 04/10/19 12:41 Pulse Ox 97 04/10/19 12:41 Laboratory Tests 04/10/19 13:09 Influenza A (Rapid) Negative Influenza B (Rapid) Negative Vital Signs Reviewed: Yes Diagnostics - Radiology CXR Radiology Interpretation Completed By: Radiologist Summary of Radiographic Findings: IMPRESSION: No active cardiopulmonary disease is noted. Respiratory Course/Dx - Course Course Of Treatment: CXR as above. In the clinic pt was given a duoneb treatment with good relief and feels easier to take a deep breath. Less wheezing on recheck. Suspect bronchitis - Differential Dx/Diagnosis Provider Diagnosis: Bronchitis Discharge ED - Sign-Out/Discharge Documenting (check all that apply): Patient Departure All imaging exams completed and their final reports reviewed: Yes - Discharge Plan Condition: Stable Disposition: HOME Prescriptions: Albuterol HFA INHALER* [Ventolin HFA Inhaler*] 1 puff INH Q6H PRN #1 mdi PRN Reason: Sob/Wheezing Azithromycin TAB* [Zithromax TAB (Z-NAHOMI) 250 mg #6 tabs] 2 tab PO .TODAY, THEN 1 DAILY #1 nahomi Patient Education Materials: Acute Bronchitis (ED) Referrals: Shemar Lackey MD [Primary Care Provider] - Additional Instructions: If you develop a fever, shortness of breath, chest pain, new or worsening symptoms - please call your PCP or go to the ED immediately. - Billing Disposition and Condition Condition: STABLE Disposition: Home
[2019-04-10] MEDS ORDERED: Albuterol/Ipratropium NEB.SOL* Albuterol 2.5 MG/Ipratropium 0.5 MG 3 ML INH ONE (13:17)
[2019-04-10 13:21] LABS: Influenza A Molecular Negative (Negative); Influenza B Molecular Negative (Negative)
== END 2019-04-10 14:56 | disposition home or self-care (01) ==
LOC: UCEAST 12:23
DX: J40 Bronchitis, not specified as acute or chronic (principal); F41.9 Anxiety disorder, unspecified; Z79.899 Other long term (current) drug therapy; Z87.891 Personal history of nicotine dependence; Z88.5 Allergy status to narcotic agent
CPT/HCPCS: 71046; 99212; A9270-GY; G0463